=== PATIENT | male | born 1950 | race Two or more races ===

== ENCOUNTER 2016-05-19 02:10 | Inpatient (IN) | payer SELFPAY ==
[2016-05-19] MEDS ORDERED: IOPAMIDOL 300 (61%) 150 ML VIAL IV ONE (02:11)
[2016-05-19 02:47] LABS: SPECIFIC GRAVITY 1.015 (1.001-1.030); URINE BILIRUBIN NEGATIVE (NEGATIVE); URINE BLOOD TRACE (NEGATIVE); URINE GLUCOSE (UA) NEGATIVE (NEGATIVE); URINE LEUKOCYTE ESTERASE NEGATIVE (NEGATIVE); URINE NITRITE NEGATIVE (NEGATIVE); URINE PROTEIN 1+ (NEGATIVE); URINE UROBILINOGEN NORMAL (0-1 mg/dl)
[2016-05-19 02:48] LABS: URINE APPEARANCE CLEAR; URINE COLOR YELLOW
[2016-05-19 02:53] LABS: URINE BACTERIA 0; URINE EPITHELIAL CELLS FEW /hpf; URINE RBC 0-1 /hpf; URINE WBC NEG /hpf
[2016-05-19 03:18] LABS: ABSOLUTE NEUTROPHIL COUNT 9.5 K/mm3 (1.8-7.7); BASO % 0.2 % (0.2-1.0); HEMATOCRIT 44.5 % (32.0-52.0); HEMOGLOBIN 14.8 gm/l (14.0-18.0); IMM NEUT% 0.4 % (0-1); LYMPH # 1.2 (1.0-4.8); LYMPH % 10.2 % (15-45); MEAN CELL VOLUME 88.6 fl (80.0-94.0); MEAN CORPUSCULAR HEMOGLOBIN 29.5 pg (27.0-31.0); MEAN CORPUSCULAR HGB CONC 33.3 g/dl (33.0-37.0); MEAN PLATELET VOLUME 8.9 fl (7.4-10.4); MONO # 0.6 (0.0-0.8); MONO % 5.1 % (4-12); NEUT % 84.1 % (43-75); PLATELET COUNT 257 K/mm3 (130-400); RED CELL DISTRIBUTION WIDTH 12.6 % (11.5-14.5)
[2016-05-19 03:38] LABS: ALB/GLOB RATIO 1.1 (>1.0); CALCIUM 9.5 mg/dL (8.6-10.3)
[2016-05-19] MEDS ORDERED: HYDROMORPHONE HCL 1 MG/ML SYRINGE ONE ×2 (03:46→04:21)
[2016-05-19] MEDS ORDERED: SODIUM CHLORIDE 0.9% 1,000 ML ONE (05:12)
[2016-05-19] MEDS ORDERED: MAGNESIUM HYDROXIDE 30 ML UDCUP PO PRN (06:56)
[2016-05-19] MEDS ORDERED: LACTATED RINGERS 1,000 ML IV SCH (06:56)
[2016-05-19] MEDS ORDERED: MENTHOL/CETYLPYRD 1 EACH LOZENGE PO PRN (06:56)
[2016-05-19] MEDS ORDERED: SODIUM CHLORIDE 0.9% 100 ML IV PRN (06:56)
[2016-05-19] MEDS ORDERED: BISACODYL 10 MG SUP PR PRN (06:56)
[2016-05-19] MEDS ORDERED: BLISTEX LIPSTICK 1 EACH TP PRN (06:56)
[2016-05-19] MEDS ORDERED: BISACODYL 5 MG TABLET.EC PO PRN (06:56)
[2016-05-19] MEDS ORDERED: ACETAMINOPHEN 325 MG TABLET PO PRN (06:56)
[2016-05-19] MEDS ORDERED: ONDANSETRON 4 MG/2ML 2 ML VIAL IV PRN (07:05)
[2016-05-19] MEDS ORDERED: BISACODYL 10 MG SUP PR ONE (07:25)
[2016-05-19 07:42] VITALS: BMI 22.7
[2016-05-19] MEDS ORDERED: PUMP TUBING ONE (07:44)
[2016-05-19] MEDS: LACTATED RINGERS 1,000 ML IV SCH ×3 (07:54→22:49)
[2016-05-19] MEDS: TAMSULOSIN HCL 0.4 MG CAPSULE.DR PO SCH ×2 (07:55→09:08)
[2016-05-19] MEDS ORDERED: MAGNESIUM CITRATE 300 ML BOT PO ONE ×2 (08:00→12:07)
--- NOTE | 2016-05-19 08:18 | HP ---
Benitez Lin [id number] DATE OF ADMISSION: 05/19/2016 CHIEF COMPLAINT: Right sided abdominal pain, nausea , and vomiting. HISTORY OF PRESENT ILLNESS: The patient is a 66-year-old male without prior medical problems who presented to the [facility] Emergency Department with complaints of right flank pain which started last night associated with nausea and vomiting throughout the night. He has had difficulty voiding with urinary frequency and acute constipation. Last bowel movement was approximately two days ago. REVIEW OF SYSTEMS: Denies any fevers or chills. He has had no recent upper respiratory symptoms. He denies cough, dyspnea, wheezing, chest pain, or shortness of breath. He has had the nausea and vomiting x4, but no hematemesis, no heartburn. He reports his right flank pain now is radiating into the right lower quadrant of the abdomen. He normally has about two bowel movements a day, but has not had a bowel movement in two days. He denies any new arthralgia's, headaches, fainting, blackouts, or seizures. He has some urinary frequency as well as hesitancy and this is an acute problem which started last night as well. He normally does not have nocturia, but did experience it last night. His review of systems is otherwise negative. PAST MEDICAL HISTORY: Negative for any chronic medical problems. No prior hospitalizations. PAST SURGICAL HISTORY: Negative. ALLERGIES: He has no known drug allergies. HE IS SENSITIVE TO PORK WHICH CAUSES HIM PROBLEMS, SO HE AVOIDS IT. MEDICATIONS: None. FAMILY HISTORY: Really unknown. His father may have had kidney stones, he does not know. SOCIAL HISTORY: He is . He is a nonsmoker. He is self employed. He rarely drinks alcohol. He has six children. He does not have a primary care provider. PHYSICAL EXAMINATION: VITAL SIGNS: Temperature is 98.5, pulse 75, blood pressure 150/80, respirations 18, oxygen saturations are 96% on room air. Body mass index is 22.7, weight is 67.8 kg. GENERAL: This is a well-developed, well-nourished male in mild distress due to pain. HEENT: Shows pupils equal, round, and reactive to light. Extraocular movements are intact. No oral lesions are present. NECK: Supple without lymphadenopathy or thyromegaly. LUNGS: Clear to auscultation bilaterally. CARDIOVASCULAR: Reveals a regular rate and rhythm without a murmur. ABDOMEN: Distended, nontender with positive bowel sounds. GENITOURINARY: Unremarkable. EXTREMITIES: Show no peripheral edema. Dorsalis pedis pulses are 2+ and equal bilaterally. LABORATORY STUDIES: Included a CBC with a white blood cell count of 11.3, hemoglobin of 14.8, and a platelet count of 257,000. Chemistry profile shows sodium of 132, potassium 5.0, chloride 97, carbon dioxide 27, BUN is 14 with a creatinine of 1.5, glucose 143. Liver function tests are normal. Albumin is 4.0, globulin is mildly elevated at 3.6. Lipase is normal at 16. Urinalysis showed a specific gravity of 1.015, 1+ protein, ketones negative, trace blood, negative nitrite, 0-1 red cells, negative white cells, 0 bacteria. DIAGNOSTICS: CT imaging on the preliminary CT showed multiple air fluid levels and a 6 to 7 mm right ureteral stone in the ureteropelvic junction with mild hydronephrosis and some perinephric stranding. Final read is pending. ASSESSMENT: The patient has right ureterolithiasis with right lower quadrant abdominal pain and associated nausea and vomiting. He is suffering from constipation and progressing towards obstipation with ileus likely secondary to his kidney stone. He is admitted to the med/surg unit. Will be aggressively hydrated. Will be given Flomax 0.8 mg daily, Dilaudid for the pain, Zofran for the vomiting, and magnesium sulfate for his constipation along with Dulcolax 10 mg by mouth x1. Further treatment and recommendations will depend on his hospital course. I am also going to bladder scan him to make sure he is emptying the bladder adequately. His CT did show some evidence of benign prostatic hypertrophy, but his urinary symptoms are all acute. JOB: [id number]
--- NOTE | 2016-05-19 08:32 | CT ---
CT ABDOMEN AND PELVIS WITH CONTRAST HISTORY: Right abdominal pain x2 days. Bloating. TECHNIQUE: Following intravenous administration of 125 mL of Isovue-300, contiguous axial images were acquired from the lung bases to the ischial tuberosities. Oral contrast was not administered. COMPARISON:None. FINDINGS: LUNG BASES: Minor atelectatic changes of the lung bases. 5 mm nodule of the right lung base, image 23. LIVER: No focal lesion. SPLEEN: No focal lesion. STOMACH: Small hiatal hernia. PANCREAS: No focal lesion. ADRENAL GLANDS: No mass effect. KIDNEYS: Right-sided collecting system and ureteral dilatation of moderate extent 6 mm distal ureteral calculus just proximal to the right ureterovesicular junction. GALLBLADDER: Present. BOWEL: Extensive proximal fecal load. Mild prominence of multiple small bowel loops more proximally. APPENDIX: Normal gas-filled appendix. PELVIC ORGANS: Filling defect at the base of bladder with enhancement which may relate to median lobe of prostate, focal prostatic lesion is possible FREE FLUID: No gross free fluid identified. INGUINAL REGIONS: Small fatty inguinal hernias. ABDOMINOPELVIC LYMPH NODES: No abnormally enlarged lymph nodes identified. ABDOMINAL AORTA: Normal caliber. OSSEOUS STRUCTURES: No grossly destructive lesions. IMPRESSION: 1. Obstructive 6 mm calculus of the distal right ureter. No residual renal calculi. 2. Prominence of multiple proximal loops of small bowel transition seen at the low anterior abdomen with decompression of distal loops of bowel; ileus and obstruction are possible, recommend radiographic follow-up. Notable proximal fecal load of the colon. 3. 5 mm nodule of the right lower lobe recommend 6-12 month follow-up if the patient has a history of smoking or neoplasm, focal follow-up if there is no such history. 4. Prominence of median lobe prostate with heterogeneous enhancement, consider PSA assessment. 5. Small hiatal hernia. Preliminary report relayed to the Emergency Medicine medical service by Dr. Walker on 05/19/2016 at 0450 hours.
[2016-05-19] MEDS: DOCUSATE SODIUM 100 MG CAPSULE PO SCH ×2 (10:03→21:18)
[2016-05-19] MEDS ORDERED: ENEMA--adult 1 EACH ONE (11:36)
[2016-05-19] MEDS ORDERED: ENEMA--adult 1 EACH PR PRN (11:41)
[2016-05-19] MEDS ORDERED: HYDROMORPHONE HCL 0.5 MG/0.5 ML SYRINGE ONE (13:25)
[2016-05-19] MEDS: HYDROMORPHONE HCL 2 MG/ML SYRINGE IV PRN (13:29)
[2016-05-19] MEDS ORDERED: POLYETHYLENE GLYCOL 3350 17 G POWD.SUSP PO PRN (17:23)
[2016-05-20] MEDS: LACTATED RINGERS 1,000 ML IV SCH ×5 (05:56→21:14)
[2016-05-20 06:08] LABS: ABSOLUTE NEUTROPHIL COUNT 5.8 K/mm3 (1.8-7.7); BASO % 0.4 % (0.2-1.0); EOS % 0.5 % (0.9-2.9); HEMATOCRIT 38.1 % (32.0-52.0); HEMOGLOBIN 12.9 gm/l (14.0-18.0); IMM NEUT% 0.3 % (0-1); LYMPH # 1.3 (1.0-4.8); LYMPH % 16.4 % (15-45); MEAN CORPUSCULAR HEMOGLOBIN 29.8 pg (27.0-31.0); MEAN CORPUSCULAR HGB CONC 33.9 g/dl (33.0-37.0); MEAN PLATELET VOLUME 9.1 fl (7.4-10.4); MONO # 0.7 (0.0-0.8); MONO % 9.1 % (4-12); NEUT % 73.3 % (43-75); PLATELET COUNT 222 K/mm3 (130-400); RED CELL DISTRIBUTION WIDTH 12.7 % (11.5-14.5)
[2016-05-20 06:28] LABS: CALCIUM 8.9 mg/dL (8.6-10.3)
[2016-05-20] MEDS ORDERED: HYDROMORPHONE HCL 0.5 MG/0.5 ML SYRINGE ONE (08:04)
[2016-05-20] MEDS: HYDROMORPHONE HCL 2 MG/ML SYRINGE IV PRN (08:07)
[2016-05-20] MEDS: TAMSULOSIN HCL 0.4 MG CAPSULE.DR PO SCH (08:08)
[2016-05-20] MEDS: DOCUSATE SODIUM 100 MG CAPSULE PO SCH ×2 (08:08→21:15)
[2016-05-20] MEDS ORDERED: TAMSULOSIN HCL 0.4 MG CAPSULE.DR PO SCH (09:00)
--- NOTE | 2016-05-20 12:15 | RAD ---
ACUTE ABDOMINAL SERIES HISTORY: Follow-up obstruction. Upright and supine radiographs of the abdomen were acquired. Upright chest radiograph also acquired. COMPARISON: CT examination from 05/19/2016. FINDINGS: BOWEL GAS PATTERN: Moderate gaseous distention of small and large bowel minor prominence of a small bowel loop. AIR-FLUID LEVELS: Multiple small air-fluid levels. FREE AIR: No gross free air. ABDOMINOPELVIC CALCIFICATIONS: Ovoid calcification of the right hemipelvis measures 7 x 3 mm in size, likely corresponding to known obstructive distal right ureteral calculus. LUNG GLORIA: Grossly clear. PLEURAL EFFUSION: None. OSSEOUS STRUCTURES: Findings of lower lumbar disc degeneration. IMPRESSION: 7 x 3 mm right hemipelvic calcification in keeping with known obstructive distal right ureteral calculus, position essentially unchanged. Minor dilatation of the central loop of small bowel with overall nonobstructive bowel gas pattern. No free air.
--- NOTE | 2016-05-20 13:05 | PDOC43 ---
- Subjective Chief Complaint: Right LQ abdominal pain Had acute pain this a.m. but better with pain med. Bowels moving well. Poor apatite. - Objective Vital Signs Temperature 98.2 F 05/20/16 07:30 Pulse Rate 64 05/20/16 07:30 Respiratory Rate 18 05/20/16 07:30 Blood Pressure 113/63 05/20/16 07:30 O2 Saturation by Pulse Oximetry 93 05/20/16 07:30 Oxygen Delivery Method Room Air Oxygen Flow Rate 0 Intake and Output 05/19/16 05/20/16 05/21/16 06:59 06:59 06:59 Intake Total 5570 Output Total 250 Balance 5320 General: Alert, Oriented x3, Cooperative, No Acute Distress HEENT: Mucous membr. moist/pink Lungs: Clear to Auscultation Bilaterally Cardiovascular: Regular Rate and Rhythm Abdomen: Soft, Normal Bowel Sounds, No Tenderness, No Masses Extremities: Normal Pulses, No Edema Skin: Normal Color Neurological: Normal Speech Psych/Mental Status: Normal Mood Laboratory 05/20/16 05:30 05/20/16 05:30 05/20/16 05:30 RBC 4.33 L Current Medications: Current meds reviewed in EMR. - Problems: Assessment/Plan (1) Ureterolithiasis Status: AcuteAssessment/Plan: Stone has not moved per x-ray today, continue IVF, tamsulosin, pain meds (2) KAREN (acute kidney injury) Status: AcuteAssessment/Plan: Resolved with hydration. (3) Anemia Status: AcuteAssessment/Plan: Dilutional from IVF (4) Constipation Qualifiers: Constipation type: unspecified constipation type Qualifier Code: ( K59.00) Constipation, unspecified Status: AcuteAssessment/Plan: Related to acute ureterolithiasis, resolved. (5) Hyponatremia Status: AcuteAssessment/Plan: Resolved with hydration (6) Ileus Status: AcuteAssessment/Plan: Related to acute ureterolithiasis, resolved. (7) Lung nodule Status: AcuteAssessment/Plan: Plan f/u CT (8) Urinary retention Status: AcuteAssessment/Plan: With increasing residual volume on bladder scanning. May be related to acute pain and opioid pain medication treatment or to prostate abnormality seen on CT but PSA is normal. (9) Hiatal hernia Status: ChronicAssessment/Plan: noted on CT, start PPI VTE Prophylaxis: mechanical Disposition: home after stone passes.
[2016-05-20] MEDS ORDERED: PANTOPRAZOLE 40 MG TABLET DR PO SCH (13:15)
[2016-05-20] MEDS: OXYCODONE HCL 5 MG TABLET PO PRN ×2 (17:37→21:15)
[2016-05-21] MEDS: LACTATED RINGERS 1,000 ML IV SCH ×2 (02:04→07:44)
[2016-05-21 07:43] VITALS: BP 130/78
--- NOTE | 2016-05-21 08:02 | PDOC5 ---
ADMIT DATE: 05/19/16 DISCHARGE DATE: 05/21/16 ADMISSION DIAGNOSES: Ureterolithiasis PROCEDURES PERFORMED THIS HOSPITALIZATION: Abd/pelvis CT--6-7 mm stone at right UVJ, ileus CONSULTATIONS: none HOSPITAL COURSE: This is a 66 year old who presented with abdominal pain. He had ureterolithiasis and ileus. He was admitted, given only ice chips PO and IVF. Bowel symptoms rapidly resolved and diet was advanced. RLQ pain persisted through 05/20 and x-ray demonstrated stone had not moved. On the morning of 05/21 he is pain free. - Exam Vital Signs Temperature 98.0 F 05/21/16 07:00 Pulse Rate 70 05/21/16 07:00 Respiratory Rate 19 05/21/16 07:49 Blood Pressure 130/78 05/21/16 07:00 O2 Saturation by Pulse Oximetry 95 05/21/16 07:00 Oxygen Delivery Method Room Air Oxygen Flow Rate 0 General: Alert, Oriented x3, Cooperative, No Acute Distress HEENT: Mucous membr. moist/pink Lungs: Clear to Auscultation Bilaterally Cardiovascular: Regular Rate and Rhythm Abdomen: Soft, Normal Bowel Sounds, No Tenderness, No Masses Extremities: Normal Pulses, No Edema Skin: Normal Color Neurological: Normal Speech Psych/Mental Status: Normal Mood - Results Laboratory 05/20/16 05:30 05/20/16 05:30 - Problems:Assessment/Plan (1) Ureterolithiasis Status: AcuteAssessment/Plan: No stone collected in strained urine but pain is gone so assumed to have passed. (2) KAREN (acute kidney injury) Status: AcuteAssessment/Plan: Resolved with hydration. (3) Anemia Status: AcuteAssessment/Plan: Dilutional from IVF (4) Constipation Qualifiers: Constipation type: unspecified constipation type Qualifier Code: ( K59.00) Constipation, unspecified Status: AcuteAssessment/Plan: Related to acute ureterolithiasis, resolved. (5) Hyponatremia Status: AcuteAssessment/Plan: Resolved with hydration (6) Ileus Status: AcuteAssessment/Plan: Related to acute ureterolithiasis, resolved. (7) Lung nodule Status: AcuteAssessment/Plan: Plan f/u CT (8) Urinary retention Status: AcuteAssessment/Plan: With increasing residual volume on bladder scanning. May be related to acute pain and opioid pain medication treatment or to prostate abnormality seen on CT but PSA is normal. (9) Hiatal hernia Status: ChronicAssessment/Plan: noted on CT, start PPI - Disposition: Disposition: home - Discharge Plan Forms: Discharge Instructions Additional Instructions: Drink plenty of water to prevent kidney stones. Prescriptions: Docusate Sodium [COLACE 100 MG CAPSULE (SHF)] 100 mg PO BID #60 capsule Pantoprazole Sodium [PROTONIX 40 MG TABLET (SHF)] 40 mg PO DAILY #30 tablet. Tamsulosin HCl [FLOMAX 0.4 MG CAPSULE (SHF)] 0.8 mg PO DAILY #30 capsule. Follow-Up: NEETA AYALA [Other] - In 6 weeks Condition: Good Disposition: Home
[2016-05-21] MEDS ORDERED: POLYETHYLENE GLYCOL 3350 17 G POWD.SUSP PO SCH (09:00)
== END 2016-05-21 10:40 | disposition home or self-care (01) | DRG 694 ==
LOC: ED 02:10 → ICU 05:39 → MS 10:43
PROVIDERS: ADMIT Family Medicine; ATTEND Family Medicine
DX: N20.1 Calculus of ureter (principal); N17.9 Acute kidney failure, unspecified; E87.1 Hypo-osmolality and hyponatremia; K56.7 Ileus, unspecified; D64.9 Anemia, unspecified; K59.00 Constipation, unspecified; R91.1 Solitary pulmonary nodule; R33.9 Retention of urine, unspecified